=== PATIENT | male | born 1985 | race Caucasian/White ===

== ENCOUNTER 2022-06-09 12:50 | Emergency (ER) | payer OTHER ==
[~2022-06-09] VITALS: Ht 175.3 cm; Wt 73.9 kg
--- NOTE | 2022-06-09 12:59 | NUR ---
patient currently being evaluated by Dr. Blackwell at bedside
[2022-06-09] MEDS ORDERED: IBUPROFEN 600 MG TABLET PO ONE (13:15)
[2022-06-09] MEDS ORDERED: IBUPROFEN 600 MG TABLET ONE (13:16)
[2022-06-09 13:28] LABS: MEAN CORPUSCULAR HEMOGLOBIN 29.1 uug (23.8-33.4); MEAN CORPUSCULAR VOLUME 87.6 fL (73.0-96.2); PLATELET COUNT (AUTO) 382 K/uL (152-348)
[2022-06-09 13:46] LABS: ACETAMINOPHEN < 2.0 ug/mL (10-30); ALANINE AMINOTRANSFERASE 30 U/L (16-63); ALKALINE PHOSPHATASE 91 U/L (50-136); ASPARTATE AMINOTRANSFERASE 11 U/L (15-37); BILIRUBIN,DIRECT 0.1 mg/dL (0.0-0.2); BILIRUBIN,TOTAL 0.3 mg/dL (0.2-1.0); CARBON DIOXIDE 29 mmol/L (21-32); CHLORIDE 103 mmol/L (98-107); CREATININE 1.1 mg/dL (0.6-1.3); GLUCOSE 131 mg/dL (74-106); POTASSIUM 3.7 mmol/L (3.5-5.1); TOTAL PROTEIN, SERUM 7.3 g/dL (6.4-8.2); UREA NITROGEN, BLOOD 19 mg/dL (7-18)
[2022-06-09 13:49] LABS: *BILIRUBIN,URIN 1+ (NEGATIVE); *BLOOD, URINE NEGATIVE (NEGATIVE); *CLARITY,URINE CLEAR (CLEAR); *COLOR,URINE YELLOW (YELLOW); *KETONES,URINE NEGATIVE (NEGATIVE); *UROBILINOGEN,URINE 0.2 E.U./dl (NORMAL); LEUKOCYTE ESTERASE ,URINE NEGATIVE (NEGATIVE); NITRITE, URINE NEGATIVE (NEGATIVE); UGLUCOSE NEGATIVE (NEGATIVE)
[2022-06-09 13:52] LABS: ETHANOL < 3 MG/DL (0-0)
[2022-06-09 14:01] LABS: *AMPHETAMINE, URINE POSITIVE (NEGATIVE); *CANNABINOID, URINE POSITIVE (NEGATIVE); *COCCAINE, URINE NEGATIVE (NEGATIVE); *OPIATE, URINE NEGATIVE (NEGATIVE); *PHENCYCLIDINE SCREEN,URINE NEGATIVE (NEGATIVE)
--- NOTE | 2022-06-09 15:17 | NUR ---
Social work consult was requested for a patient in the emergency room for homeless and substance abuse resources. Patient is 36-year-old male, and he is alert and oriented X4. Patient presents with depressed mood and congruent affect. Patient states he does not have a primary contact. Patient states he has been living at a nursing home on [facility] for a year and JASSON provided the patient with resources for [facility] [address] [place] [address] ([phone]) and [facility] [address] [facility] [address] ([phone]). JASSON gave resources for [facility] [address] [facility] [address]. Homeless waiver was signed and given to the patient and a copy was placed in the chart. Patient states he has a history of meth abuse and patient states the last time he used meth was two days ago and the toxicology report is positive for amphetamines and cannabinoids. JASSON provided the patient with resources for substance abuse from [facility] [address] [facility] [address] ([phone]), [facility] [address] [facility] [address] ([phone]), and [facility] [address] [place] [phone] ([phone]). Patient appears unmotivated for treatment. Patient states he has a history of schizophrenia and takes Zyprexa, Prozac and Abilify that he receives from an urgent care. JASSON provided the patient with mental health resource for [facility] [address] [place] [address] ([phone]). Patient states he is having suicidal ideation and denies homicidal ideation. Patient states he is open to going to [facility] and JASSON contacted [facility] ([phone]) and faxed him the patients face sheet (fax: [phone]) and sent the clinical information to [facility] (fax: [phone]). JASSON will continue to follow up.
--- NOTE | 2022-06-09 17:07 | NUR ---
Patient reported to the ER with complaints of depression and suicide ideation. Patient seen by physician. Referral sent by social work instructor to [facility] ([phone], Ext [phone]): patient accepted for treament. Report given to Nica at accepting facility. Accept psychiatrist - Dr. Bustillos. Following Surgical Aide - Dr. Ho. Patient scheduled for last picker with [facility] at 1900.
== END 2022-06-09 19:42 ==
LOC: ER 12:50
DX: R45.851 Suicidal ideations (principal); F19.10 Other psychoactive substance abuse, uncomplicated; Z20.822 Contact with and (suspected) exposure to COVID-19; M79.671 Pain in right foot; M25.571 Pain in right ankle and joints of right foot; W18.40XA Slipping, tripping and stumbling without falling, unspecified, initial encounter; Y93.01 Activity, walking, marching and hiking; Y92.89 Other specified places as the place of occurrence of the external cause; Y99.8 Other external cause status; Z59.01 Sheltered homelessness
CPT/HCPCS: 36415; 73610; 73630; 85025; A4663; G0480